=== PATIENT | female | born 1935 | race Caucasian/White ===

== ENCOUNTER 2021-08-20 06:49 | Observation (INO) ==
[~2021-08-20 06:49] MED LIST: Polymyxin B Sulfate 500,000 UNIT, Sodium Chloride IRRigation 1,000 ML IR ONE
[2021-08-20] MEDS ORDERED: Lidocaine HCL 4 ML Topical Solution (Laryng-O-Jet Kit Sterile Pak) TP ONE (07:20)
[2021-08-20] MEDS ORDERED: *HR* Propofol 200 MG/20 ML VIAL IVP ONE (07:21)
[2021-08-20] MEDS ORDERED: *HR* FentaNYL (PF) 100 MCG/2 ML VIAL ONE (07:21)
[2021-08-20] MEDS ORDERED: *HR* Remifentanil 2 MG VIAL IVP ONE (07:22)
[2021-08-20] MEDS ORDERED: Ondansetron 4 MG/2 ML VIAL ONE (07:22)
[2021-08-20] MEDS ORDERED: *HR* Succinylcholine 200 MG/10 ML VIAL IVP ONE (07:22)
[2021-08-20] MEDS ORDERED: *HR* Rocuronium Bromide 50 MG/5 ML VIAL ONE (07:22)
[2021-08-20] MEDS ORDERED: Lidocaine -MPF 2% 5 ML VIAL ONE (07:22)
[2021-08-20] MEDS ORDERED: *HR* Phenylephrine 10 MG/ML VIAL ONE (07:23)
[2021-08-20] MEDS ORDERED: *HR* Magnesium Sulfate 1 GM/2 ML VIAL ONE (07:23)
[2021-08-20] MEDS ORDERED: *HR* HYDROMORPHONE 2 MG/ML VIAL ONE (07:24)
[2021-08-20] MEDS ORDERED: Clindamycin 900 MG/50 ML 900 MG/50 ML IV.SOLN IVPB ONE (07:27)
[2021-08-20] MEDS ORDERED: Ondansetron 4 MG/2 ML VIAL IVP PRN ×2 (07:29→13:27)
[2021-08-20] MEDS ORDERED: Ringers Solution, Lactated 1,000 ML IVC SCH ×3 (07:30→13:27)
[2021-08-20] MEDS ORDERED: *HR* Vasopressin 20 UNIT/ML VIAL ONE (07:32)
[2021-08-20] MEDS ORDERED: Acetaminophen IV 1,000 MG/100 ML BAG IVPB ONE (08:30)
[2021-08-20] MEDS ORDERED: Sugammadex Sodium 200 MG/2 ML VIAL IV ONE (09:15)
[2021-08-20] MEDS ORDERED: Vancomycin 1,000 MG VIAL ONE (11:07)
[2021-08-20] MEDS ORDERED: *HR* Labetalol 20 MG/4 ML SYRINGE IVP ONE (11:44)
[2021-08-20] MEDS: *HR* HYDROmorphone PF 0.5 MG/0.5 ML SYRINGE IVP PRN ×2 (12:40→12:59)
[2021-08-20] MEDS ORDERED: Acetaminophen 325 MG TABLET PO PRN (13:27)
[2021-08-20] MEDS ORDERED: Cyanocobalamin (B-12) 1,000 MCG/ML VIAL IM SCH (13:27)
[2021-08-20] MEDS ORDERED: Denosumab 60 MG/ML SYRINGE SQ SCH (13:27)
[2021-08-20] MEDS ORDERED: Naloxone 0.4 MG/ML INJ IVP PRN (13:27)
[2021-08-20] MEDS: *HR* OxyCODONE Immed Rel 5 MG TABLET PO PRN (16:52)
[2021-08-20] MEDS: Clindamycin 900 MG/50 ML 900 MG/50 ML IV.SOLN IVPB SCH ×2 (16:53→23:23)
[2021-08-20] MEDS: *HR* HYDROcodone/Acet 5/325 mg TABLET PO PRN (21:19)
[2021-08-21] MEDS: *HR* HYDROcodone/Acet 5/325 mg TABLET PO PRN (04:02)
[2021-08-21] MEDS ORDERED: NON-FORMULARY MEDICATION 1 EACH EACH (Omega-3 Fatty Acids [Fish Oil] 300 MG Capsule) PO SCH (09:00)
[2021-08-21] MEDS ORDERED: BIOTIN 5 MG PO SCH (09:00)
[2021-08-21] MEDS: Cholecalciferol (D-3) 1,000 UNIT (25MCG) TABLET PO SCH (09:26)
[2021-08-21] MEDS: Aspirin Enteric Coated 81 MG Tablet PO SCH (09:26)
[2021-08-21] MEDS: (Linaclotide [Linzess] 145 MCG Capsule) PO SCH (09:26)
[2021-08-21] MEDS: *HR* OxyCODONE Immed Rel 5 MG TABLET PO PRN ×3 (10:50→20:33)
[2021-08-22] MEDS: *HR* OxyCODONE Immed Rel 5 MG TABLET PO PRN ×3 (01:27→16:49)
[2021-08-22] MEDS: *HR* HYDROcodone/Acet 5/325 mg TABLET PO PRN ×2 (06:10→19:40)
[2021-08-22] MEDS: Cholecalciferol (D-3) 1,000 UNIT (25MCG) TABLET PO SCH (08:23)
[2021-08-22] MEDS: Aspirin Enteric Coated 81 MG Tablet PO SCH (08:24)
[2021-08-22] MEDS: tiZANidine 4 MG TABLET PO PRN ×2 (11:09→19:40)
[2021-08-22] MEDS: (Linaclotide [Linzess] 145 MCG Capsule) PO SCH (19:40)
[2021-08-23] MEDS: *HR* OxyCODONE Immed Rel 5 MG TABLET PO PRN ×4 (01:06→19:31)
[2021-08-23] MEDS: Aspirin Enteric Coated 81 MG Tablet PO SCH (07:37)
[2021-08-23] MEDS: Cholecalciferol (D-3) 1,000 UNIT (25MCG) TABLET PO SCH (07:37)
[2021-08-23] MEDS: tiZANidine 4 MG TABLET PO PRN ×2 (07:37→19:31)
[2021-08-23] MEDS: (Linaclotide [Linzess] 145 MCG Capsule) PO SCH (07:40)
[2021-08-24] MEDS: *HR* OxyCODONE Immed Rel 5 MG TABLET PO PRN ×2 (02:27→21:11)
[2021-08-24] MEDS: tiZANidine 4 MG TABLET PO PRN ×3 (05:05→23:43)
[2021-08-24] MEDS: *HR* HYDROcodone/Acet 5/325 mg TABLET PO PRN (07:32)
[2021-08-24] MEDS: Cholecalciferol (D-3) 1,000 UNIT (25MCG) TABLET PO SCH (07:32)
[2021-08-24] MEDS: Aspirin Enteric Coated 81 MG Tablet PO SCH (07:32)
[2021-08-24] MEDS: (Linaclotide [Linzess] 145 MCG Capsule) PO SCH (07:33)
[2021-08-25] MEDS: *HR* OxyCODONE Immed Rel 5 MG TABLET PO PRN ×4 (01:07→15:53)
[2021-08-25] MEDS: Aspirin Enteric Coated 81 MG Tablet PO SCH (08:09)
[2021-08-25] MEDS: *HR* HYDROcodone/Acet 5/325 mg TABLET PO PRN (08:09)
[2021-08-25] MEDS: Cholecalciferol (D-3) 1,000 UNIT (25MCG) TABLET PO SCH (08:10)
[2021-08-25] MEDS: (Linaclotide [Linzess] 145 MCG Capsule) PO SCH (08:12)
[2021-08-25 10:33] LABS: Adenovirus Not Detected (Not Detect); Bordetella Pertussis Not Detected (Not Detect); Coronavirus 229E Not Detected (Not Detect); Coronavirus HKU1 Not Detected (Not Detect); Coronavirus NL63 Not Detected (Not Detect); Coronavirus OC43 Not Detected (Not Detect); Human Metapneumovirus Not Detected (Not Detect); Human Rhinovirus/Enterovirus Not Detected (Not Detect); Influenza A Subtype 2009 H1 Not Detected (Not Detect); Influenza B Not Detected (Not Detect); Parainfluenza Virus 1 Not Detected (Not Detect); Parainfluenza Virus 2 Not Detected (Not Detect); Parainfluenza Virus 3 Not Detected (Not Detect); Parainfluenza Virus 4 Not Detected (Not Detect); Respiratory Syncytial Virus Not Detected (Not Detect); SARS-CoV-2 Not Detected (Not Detect)
[2021-08-25 10:34] LABS: Chlamydophila pneumoniae Not Detected (Not Detect); Mycoplasma pneumoniae Not Detected (Not Detect)
[2021-08-25] MEDS: tiZANidine 4 MG TABLET PO PRN (13:48)
[2021-08-25 15:34] VITALS: BP 147/69; PULSE 77; TEMP 98.1; O2SAT 95
== END 2021-08-25 16:20 ==
LOC: SDCAOSI 06:49 → 4WAOSI 06:49
PROVIDERS: ADMIT Orthopaedic Surgery Orthopaedic Surgery of the Spine; ATTEND Orthopaedic Surgery Orthopaedic Surgery of the Spine